=== PATIENT | male | born 1975 | race Caucasian/White ===

== ENCOUNTER 2021-01-19 15:15 | Emergency (ER) | payer OTHER ==
[2021-01-19 16:08] LABS: BASOPHIL 1.1 % (0-2); EOSINOPHIL 4.8 % (0-5); HCT 41.8 % (42.0-52.0); HGB 14.5 g/dl (13.2-18.0); LYMPHOCYTE 33.5 % (15-48); MCH 31.7 pg (25.0-31.0); MCHC 34.7 g/dL (32.0-36.0); MCV 91.3 fL (78.0-100.0); MONOCYTE 8.3 % (0-12); MPV 9.9 fL (6.0-9.5); NEUTROPHIL 52.1 % (41-80); NRBC 0; PLT 219 K/uL (150-400); RBC 4.58 M/uL (4.70-6.00); RDW 12.3 % (11.5-14.0); WBC 5.7 K/uL (4.0-10.5)
[2021-01-19 16:27] LABS: ALBUMIN 3.6 g/dL (3.4-5.0); BILIRUBIN - TOTAL 0.4 mg/dL (0.2-1.0); BUN/CREAT RATIO (CALC) 18.4 RATIO; CREATININE 0.76 mg/dL (0.67-1.17); GLOBULIN (CALCULATION) 3.4 g/dL; POTASSIUM 4.4 mmol/L (3.5-5.1)
[2021-01-19 17:04] LABS: INR 1.07 (0.9-1.2); PROTHROMBIN TIME 13.2 SECONDS (11.4-13.6); PTT 27.9 SECONDS (22.2-34.7)
== END 2021-01-19 18:40 | disposition home or self-care (01) ==
LOC: FER 15:15
PROVIDERS: Emergency Medicine
DX: R07.89 Other chest pain (principal); I10 Essential (primary) hypertension; Z79.899 Other long term (current) drug therapy
CPT/HCPCS: 36415; 71045; 80053; 84484; 85025; 85610; 85730; 93005